=== PATIENT | male | born 1990 | race American Indian/Alaskan Native ===

== ENCOUNTER 2019-08-11 19:45 | Emergency (ER) | payer OTHER ==
[2019-08-11 20:05] VITALS: BP 158/78
[2019-08-11] MEDS ORDERED: IBUPROFEN 600 MG TAB PO ONE ×2 (21:18→21:21)
--- NOTE | 2019-08-11 21:18 | Event Note ---
ED Screening Note Date of service: 08/11/19 Time: 21:16 ED Screening Note: 28 y o male presents with fever, malaise, throat pain and coughing x 2 days This initial assessment/diagnostic orders/clinical plan/treatment(s) is/are subject to change based on patients health status, clinical progression and re- assessment by fellow clinical providers in the ED. Further treatment and workup at subsequent clinical providers discretion. Patient/guardian urged not to elope from the ED as their condition may be serious if not clinically assessed and managed. Initial orders include: tylenol in triage cxr acc eval
[2019-08-11] MEDS ORDERED: ACETAMINOPHEN 325 MG TAB ONE (21:19)
--- NOTE | 2019-08-11 22:04 | XRay Report ---
CHEST 2 VIEWS INDICATION: fever,cough. COMPARISON: None FINDINGS: Support devices: None. Heart: Within normal limits. Lungs/pleura: No acute air space or interstitial disease. No pneumothorax. Additional findings: None. IMPRESSION: 1. No acute findings. Signer Name: Geovany Koehler MD Signed: 08/11/2019 10:00 PM Workstation Name: [id number]
[2019-08-11] MEDS ORDERED: AMOXICILLIN/K CLAV 875/125MG TAB PO ONE (23:11)
[2019-08-11] MEDS ORDERED: ONDANSETRON 4 MG ODT TAB PO ONE (23:11)
[2019-08-11] MEDS ORDERED: predniSONE 20 MG TAB PO ONE (23:11)
[2019-08-11] MEDS ORDERED: ACETAMINOPHEN 500 MG TAB PO ONE (23:11)
--- NOTE | 2019-08-12 00:13 | Emergency Department Report ---
- General Chief Complaint: Fever Stated Complaint: FLU LIKE SYMPTOMS Source: patient, EMS Mode of arrival: Wheelchair Limitations: No Limitations - History of Present Illness Initial Comments: Patient is a 28-year-old [place] male with no past medical history who presents to the ED with content of acute onset persistent diffuse body aches and pains, nasal and sinus congestion with frontal sinus pressure and headache, sore throat, persistent cough with white phlegm, lack of appetite, intermittent fever of 101F with chills and diaphoresis for the last 4 days worse in the last 2 days. Patient denies dizziness, syncope, chest pain, shortness of breath, abdominal pain, nausea, vomiting, diarrhea, dysuria, urinary frequency and urgency or testicular pain, unchanged condition. Patient states that non-else at home is had similar symptoms. Patient states that he has been taking [id number] medication with no relief. MD Complaint: fever, cough, sore throat, rhinorrhea, nasal congestion, sinus pain, other (headache; diffuse body aches and pains) -: Sudden, days(s) (4) Severity: severe Severity scale (0 -10): 8 Quality: sharp, aching Consistency: constant Improves With: nothing Worsens With: nothing Associated Symptoms: denies other symptoms, fever, chills, myalgias, headache, rhinorrhea, nasal congestion, sore throat, cough. denies: stiff neck, chest tal n, shortness of breath, abdominal pain, nausea, vomiting, diarrhea, dysuria, rash, confusion, right sweats, weight loss, epistaxis, hoarseness Treatments Prior to Arrival: Acetaminophen - Related Data Previous Rx's Medication Instructions Recorded Last Taken Type Amoxicillin [Trimox CAP] 500 mg PO Q8H #30 capsule 08/12/19 Unknown Rx Benzonatate [Tessalon Perles] 100 mg PO Q8HR #30 capsule 08/12/19 Unknown Rx Cetirizine HCl [Zyrtec 10mg tab] 10 mg PO DAILY #30 tablet 08/12/19 Unknown Rx Ibuprofen [Motrin] 600 mg PO Q8H PRN #24 tablet 08/12/19 Unknown Rx Ondansetron [Zofran Odt] 4 mg PO Q6HR PRN #15 tab.rapdis 08/12/19 Unknown Rx predniSONE [Deltasone] 40 mg PO QDAY #10 tab 08/12/19 Unknown Rx Allergies Allergy/AdvReac Type Severity Reaction Status Date / Time No Known Allergies Allergy Verified 08/11/19 21:27 ED Review of Systems ROS: Stated complaint: FLU LIKE SYMPTOMS Other details as noted in HPI Comment: All other systems reviewed and negative Constitutional: chills, fever, malaise Eyes: denies: eye pain, eye discharge, vision change ENT: throat pain, congestion. denies: ear pain Respiratory: cough. denies: shortness of breath, wheezing Cardiovascular: denies: chest pain, palpitations Endocrine: no symptoms reported Gastrointestinal: denies: abdominal pain, nausea, vomiting, diarrhea, hematochezia Genitourinary: denies: urgency, dysuria, frequency, hematuria Musculoskeletal: arthralgia, myalgia. denies: back pain, joint swelling Skin: denies: rash, lesions Neurological: headache. denies: weakness, paresthesias Psychiatric: denies: anxiety, depression Hematological/Lymphatic: denies: easy bleeding, easy bruising ED Past Medical Hx - Past Medical History Previous Medical History?: Yes Hx Asthma: Yes Additional medical history: Congenital heart defect - Surgical History Past Surgical History?: No - Social History Smoking Status: Never Smoker Substance Use Type: None - Medications Home Medications: Home Medications Medication Instructions Recorded Confirmed Last Taken Type Amoxicillin [Trimox CAP] 500 mg PO Q8H #30 capsule 08/12/19 Unknown Rx Benzonatate [Tessalon Perles] 100 mg PO Q8HR #30 capsule 08/12/19 Unknown Rx Cetirizine HCl [Zyrtec 10mg tab] 10 mg PO DAILY #30 tablet 08/12/19 Unknown Rx Ibuprofen [Motrin] 600 mg PO Q8H PRN #24 tablet 08/12/19 Unknown Rx Ondansetron [Zofran Odt] 4 mg PO Q6HR PRN #15 tab.rapdis 08/12/19 Unknown Rx predniSONE [Deltasone] 40 mg PO QDAY #10 tab 08/12/19 Unknown Rx ED Physical Exam - General Limitations: No Limitations General appearance: alert, in no apparent distress - Head Head exam: Present: atraumatic, normocephalic, normal inspection - Eye Eye exam: Present: normal appearance, PERRL, EOMI. Absent: scleral icterus, conjunctival injection Pupils: Present: normal accommodation - ENT ENT exam: Present: mucous membranes moist, TM's normal bilaterally, normal external ear exam, other (grossly congested nasal passages with frontal sinus tenderness; erythematous oropharynx) - Neck Neck exam: Present: normal inspection, full ROM, lymphadenopathy - Respiratory Respiratory exam: Present: normal lung sounds bilaterally. Absent: respiratory distress, wheezes, rales, chest wall tenderness, accessory muscle use, decreased breath sounds, prolonged expiratory - Cardiovascular Cardiovascular Exam: Present: normal rhythm, tachycardia, normal heart sounds. Absent: systolic murmur, diastolic murmur, rubs, gallop - GI/Abdominal GI/Abdominal exam: Present: soft, normal bowel sounds. Absent: tenderness, rebound, hyperactive bowel sounds, hypoactive bowel sounds, organomegaly - Extremities Exam Extremities exam: Present: normal inspection, full ROM - Back Exam Back exam: Present: normal inspection, full ROM - Neurological Exam Neurological exam: Present: alert, oriented X3, CN II-XII intact, normal gait, reflexes normal - Psychiatric Psychiatric exam: Present: normal affect, normal mood - Skin Skin exam: Present: warm, dry, intact, normal color. Absent: rash ED Course Vital Signs 08/11/19 19:59 Temperature 101.8 F H Pulse Rate 100 H Respiratory 20 Rate Blood Pressure 158/78 O2 Sat by Pulse 99 Oximetry ED Medical Decision Making - Radiology Data Radiology results: report reviewed, image reviewed Chest x-ray shows no acute cardiopulmonary abnormalities or pneumonitis. - Medical Decision Making This is a 28-year-old [place] male with no past medical history presented to the ED with flulike symptoms characterized by intermittent fever and chills, nasal and sinus congestion, sore throat, persistent cough with white phlegm, diffuse body aches and pains or headache and generalized weakness. In the ED, patient is alert and oriented 3 and is not in distress, febrile and tachycardic triage. Chest x-ray shows no acute cardiopulmonary abnormalities or pneumonitis. Patient was treated for fever in the ED. On reevaluation, coco roper's fever resolved patient pains and aches also control at this time. Patient was discharged home with medications and was advised to follow-up with the primary care physician in 7-10 days for reevaluation or return to the ED immediately if symptoms get worse. - Differential Diagnosis Flu; Pneumonia; Strep pharyngitis; URI Critical care attestation.: If time is entered above; I have spent that time in minutes in the direct care of this critically ill patient, excluding procedure time. ED Disposition Clinical Impression: Fever and chills, Flu-like symptoms Acute bronchitis Qualifiers: Bronchitis organism: other organism Qualified Code(s): J20.8 - Acute bronchitis due to other specified organisms Acute pharyngitis Qualifiers: Pharyngitis/tonsillitis etiology: other specified organisms Qualified Code(s): J02.8 - Acute pharyngitis due to other specified organisms Disposition: TO HOME OR SELFCARE Is pt being admited?: No Does the pt Need Aspirin: No Condition: Stable Instructions: Acute Bronchitis (ED), Pharyngitis (ED), Upper Respiratory Infection (ED), Viral Syndrome (ED) Additional Instructions: Take medications with food, drink plenty of fluids and follow-up with your [facility] physician in 7-10 days for reevaluation. Return to the ED immediately if symptoms get worse. Prescriptions: predniSONE [Deltasone] 40 mg PO QDAY #10 tab Ibuprofen [Motrin] 600 mg PO Q8H PRN #24 tablet PRN Reason: Pain Benzonatate [Tessalon Perles] 100 mg PO Q8HR #30 capsule Amoxicillin [Trimox CAP] 500 mg PO Q8H #30 capsule Ondansetron [Zofran Odt] 4 mg PO Q6HR PRN #15 tab.rapdis PRN Reason: Nausea Cetirizine HCl [Zyrtec 10mg tab] 10 mg PO DAILY #30 tablet Referrals: KALYANI SALGADO MD [Staff Physician] - 3-5 Days Forms: Work/School Release Form(ED) Time of Disposition: 00:18 Print Language: ITALIAN
== END 2019-08-12 00:31 | disposition home or self-care (01) ==
LOC: ED 19:45
DX: J20.8 Acute bronchitis due to other specified organisms (principal); J02.8 Acute pharyngitis due to other specified organisms; J11.1 Influenza due to unidentified influenza virus with other respiratory manifestations; J45.909 Unspecified asthma, uncomplicated; Z79.899 Other long term (current) drug therapy
CPT/HCPCS: 71046; 99283; J7512; Q0162